=== PATIENT | female | born 1970 | race Caucasian/White ===

== ENCOUNTER 2017-08-18 14:26 | Emergency (ER) | payer OTHER ==
[~2017-08-18] VITALS: Ht 162.6 cm; Wt 84.1 kg
[~2017-08-18 14:26] MED LIST: FIORICET 50-301 EACH PO; MOTRIN600 MG PO; VALIUM5 MG PO; ZOFRAN ODT4 MG PO
[2017-08-18 15:33] LABS: HEMOGLOBIN 12.7 G/DL (11.9-15.5); MCH 25.8 PG (29.0-34.0); MCHC 33.4 G/DL (30.0-36.0); MCV 77.1 FL (83-99); PLATELET COUNT 305 K/uL (156-360); RBC DIS.WIDTH-CV 13.8 % (11.8-14.6); RBC DIS.WIDTH-SD 38.8 % (39-53); RED BLOOD COUNT 4.93 M/uL (3.80-5.20); WHITE BLOOD COUNT 7.3 K/uL (4.1-10.2)
[2017-08-18 15:43] LABS: ALBUMIN 4.3 g/dL (3.2-4.8); CHLORIDE 105 mEq/L (99-109); POTASSIUM 4.1 mEq/L (3.7-5.4); SODIUM 139 mEq/L (136-147)
[2017-08-18 15:46] LABS: GLUCOSE 90 mg/dL (70-99); TOTAL PROTEIN 7.3 g/dL (6.4-8.3)
[2017-08-18 15:48] LABS: TOTAL BILIRUBIN 0.6 mg/dL (0.0-1.0)
[2017-08-18 15:49] LABS: ALKALINE PHOSPHATASE 85 IU/L (3-129); CREATININE 1.1 mg/dL (0.6-1.3); GFR ESTIMATE (CALCULATED) 57 mL/min/
[2017-08-18 15:50] LABS: UREA NITROGEN (BUN) 14 mg/dL (9-23)
[2017-08-18 15:51] LABS: AST (GOT) 23 IU/L (2-34)
[2017-08-18 15:52] LABS: ALT (GPT) 34 IU/L (3-49)
[2017-08-18 15:53] LABS: LIPASE 50 U/L (1.0-51.0)
[2017-08-18 15:59] LABS: APPEARANCE CLEAR ((CLEAR)); BILIRUBIN NEGATIVE; BLOOD NEGATIVE; COLOR YELLOW ((YELLOW)); GLUCOSE (STRIP) NEGATIVE; KETONES NEGATIVE; LEUKOCYTES TRACE; NITRITE NEGATIVE; PROTEIN (STRIP) NEGATIVE; SPECIFIC GRAVITY 1.011 (1.000-1.030); UROBILINOGEN 0.2 MG/DL (0.2-1.0)
[2017-08-18 15:59] LABS: QUANTITATIVE HCG < 4.0 MIU/ML
[2017-08-18 16:01] LABS: BACTERIA RARE /HPF; EPITHELIAL CELLS RARE /HPF; MUCUS TRACE /LPF; RED BLOOD CELLS 0-5 /HPF (0-5); UCUL ADDED? NO; WHITE BLOOD CELLS 0-5 /HPF (0-5)
[2017-08-18] MEDS ORDERED: PERCOCET 5/31 TABLET PO (18:15)
[2017-08-18] MEDS ORDERED: ZOFRAN4 MG PO (18:15)
[2017-08-18] MEDS ORDERED: MOTRIN600 MG PO (18:15)
[2017-08-18] MEDS ORDERED: CIPRO500 MG PO (18:34)
[2017-08-18 18:51] VITALS: BP 145/88
== END 2017-08-18 18:52 | disposition home or self-care (01) ==
LOC: EME 14:26
PROVIDERS: Physician Assistant
DX: R10.9 Unspecified abdominal pain (principal); R30.0 Dysuria; Z87.442 Personal history of urinary calculi; I10 Essential (primary) hypertension; Z88.1 Allergy status to other antibiotic agents
CPT/HCPCS: 74176; 80053; 81003; 83690; 84702; 85027; 99281; 99284

== ENCOUNTER 2017-12-05 17:17 | Observation (INO) | payer OTHER ==
[~2017-12-05] VITALS: Ht 162.6 cm; Wt 84.1 kg
[~2017-12-05 17:17] MED LIST changes: +CIPRO500 MG PO; +PERCOCET 5/31 TABLET PO; +ZOFRAN4 MG PO
[2017-12-05 18:13] LABS: ALBUMIN 3.9 g/dL (3.2-4.8); CHLORIDE 111 mEq/L (99-109); POTASSIUM 4.1 mEq/L (3.7-5.4); SODIUM 139 mEq/L (136-147)
[2017-12-05 18:14] LABS: MAGNESIUM 2.5 mg/dL (1.3-2.7)
[2017-12-05 18:15] LABS: GLUCOSE 92 mg/dL (70-99)
[2017-12-05 18:16] LABS: TOTAL PROTEIN 6.9 g/dL (6.4-8.3)
[2017-12-05 18:17] LABS: TOTAL BILIRUBIN 0.4 mg/dL (0.0-1.0)
[2017-12-05 18:19] LABS: ALKALINE PHOSPHATASE 83 IU/L (3-129); CREATININE 0.9 mg/dL (0.6-1.3); GFR ESTIMATE (CALCULATED) > 59 mL/min/
[2017-12-05 18:20] LABS: UREA NITROGEN (BUN) 11 mg/dL (9-23)
[2017-12-05 18:21] LABS: AST (GOT) 21 IU/L (2-34)
[2017-12-05 18:22] LABS: ALT (GPT) 28 IU/L (3-49)
[2017-12-05 18:24] LABS: BASOPHIL (%) 0.6 % (0-1); EOSINOPHIL (%) 3.3 % (0-5); EOSINOPHIL COUNT 0.2 K/uL (0-0.3); HEMATOCRIT 36.8 % (36.0-46.0); IMMATURE GRANULOCYTE (%) 0.4 % (0.0-0.7); LYMPHOCYTE (%) 24.6 % (15-42); LYMPHOCYTE COUNT 1.8 K/uL (1.0-2.8); MCH 24.3 PG (29.0-34.0); MCHC 32.6 G/DL (30.0-36.0); MCV 74.6 FL (83-99); MONOCYTE (%) 9.4 % (3-12); MONOCYTE COUNT 0.7 K/uL (0-0.8); NEUTROPHIL (%) 61.7 % (45-76); NEUTROPHIL COUNT 4.5 K/uL (1.8-6.4); PLATELET COUNT 339 K/uL (156-360); RBC DIS.WIDTH-CV 14.9 % (11.8-14.6); RBC DIS.WIDTH-SD 40.4 % (39-53); RED BLOOD COUNT 4.93 M/uL (3.80-5.20); WHITE BLOOD COUNT 7.2 K/uL (4.1-10.2)
[2017-12-05 18:41] LABS: TROP-I INTERPRETATION NEGATIVE; TROPONIN-I < 0.01 ng/mL (0.0-0.30)
[2017-12-06 00:05] VITALS: BP 129/87
[2017-12-06 00:55] LABS: TROP-I INTERPRETATION NEGATIVE; TROPONIN-I < 0.01 ng/mL (0.0-0.30)
[2017-12-06 06:50] LABS: HEMOGLOBIN 11.2 G/DL (11.9-15.5); MCH 23.9 PG (29.0-34.0); MCHC 31.1 G/DL (30.0-36.0); MCV 76.8 FL (83-99); PLATELET COUNT 312 K/uL (156-360); RBC DIS.WIDTH-CV 15.2 % (11.8-14.6); RED BLOOD COUNT 4.69 M/uL (3.80-5.20); WHITE BLOOD COUNT 6.2 K/uL (4.1-10.2)
[2017-12-06 07:00] LABS: PTT 29.1 SEC (25-37)
[2017-12-06 07:15] LABS: TROP-I INTERPRETATION NEGATIVE; TROPONIN-I < 0.01 ng/mL (0.0-0.30)
[2017-12-06 07:20] LABS: CHLORIDE 109 MEQ/L (99-109); GFR ESTIMATE (CALCULATED) > 59 mL/min/; GLUCOSE 94 mg/dL (70-99); POTASSIUM 4.5 MEQ/L (3.7-5.4); SODIUM 141 MEQ/L (136-147); UREA NITROGEN (BUN) 11 mg/dL (9-23)
[2017-12-06 07:21] VITALS: BP 111/65
[2017-12-06 12:15] VITALS: BP 138/77
[2017-12-06] MEDS ORDERED: LISINOPRIL20 MG PO (14:02)
[2017-12-06] MEDS ORDERED: NITROSTAT0.4 MG SL (14:02)
[2017-12-06] MEDS ORDERED: FAMOTIDINE20 MG PO (14:02)
[2017-12-06] MEDS ORDERED: ASPIR 8181 M1 PO (14:03)
== END 2017-12-06 15:18 | disposition home or self-care (01) ==
LOC: EME 17:17 → EDOF 20:14 → 4SOUTH 20:14 → ENRESERV 20:16 → 4SOUTH 21:31 → ENPENDDIS 12-06 → 4SOUTH 12-06 15:18
PROVIDERS: Emergency Medicine; Hospitalist
DX: R07.9 Chest pain, unspecified (principal); M79.602 Pain in left arm; I10 Essential (primary) hypertension; K21.9 Gastro-esophageal reflux disease without esophagitis; R51 Headache; T46.3X5A Adverse effect of coronary vasodilators, initial encounter; Z79.82 Long term (current) use of aspirin; Z88.1 Allergy status to other antibiotic agents; Z88.5 Allergy status to narcotic agent; Z82.49 Family history of ischemic heart disease and other diseases of the circulatory system; Z80.1 Family history of malignant neoplasm of trachea, bronchus and lung
CPT/HCPCS: 71046; 80048; 80053; 83735; 84484; 85025; 85027; 85379; 85610; 85730; 93005; 99281; 99285; G0378